=== PATIENT | male | born 1980 ===

== ENCOUNTER → 2020-10-04 | Outpatient (CLI) | payer OTHER ==
[~2020-10-04] MED LIST: ATEN25 PO; CYCL10 PO; IBUP800 PO; Veetids 500500 MG PO
[2020-10-05 17:20] LABS: CORONAVIRUS (COVID19) CSH-NRL Negative (Negative)
== END ==
LOC: LAB 09:24 → LAB SHORT 09:24
PROVIDERS: Chiropractor
DX: Z20.822 Contact with and (suspected) exposure to COVID-19 (principal)
CPT/HCPCS: U0003